=== PATIENT | female | born 1955 | race Caucasian/White ===

== ENCOUNTER 2017-01-14 07:36 | Inpatient (IN) | payer BC ==
--- NOTE | ~2017-01-14 | OP ---
Record Of Operation [facility] [address] [place]. [address] NAME: NAI MAYER : 57 STATUS : DIS IN PAT#: [id number] AGE: 62 ADM/REG DATE : 01/14/17 MR#: [id number] REPORT SERV DATE: 01/16/17 DICTATED BY: JOHNATHAN BERNARD II DATE: 01/16/17 REPORT STATUS : Draft TRANSCRIBED BY: AMARA DATE: 01/16/17 DATE OF PROCEDURE: 01/14/2017 MUSHROOM GROWTH MEDIA MIXER: Dr. Mariaelena Herron. PREOPERATIVE DIAGNOSIS: Recurrent symptomatic left carotid stenosis. POSTOPERATIVE DIAGNOSIS: Recurrent symptomatic left carotid stenosis. PROCEDURE: Left carotid angioplasty and stent placement with distal filter protection. ANESTHESIA: Local with MAC. IV FLUIDS: 500. ESTIMATED BLOOD LOSS: 10. CONTRAST: 24. BRIEF HISTORY: Ms. Mayer is a 62-year-old female who had a previous left carotid endarterectomy many years ago. She continues to smoke. She has had no surveillance. She presents with a recurrent episode of aphasia. Ultrasound demonstrates severe restenoses within the internal carotid artery. DESCRIPTION OF PROCEDURE: She was taken to the operating room and placed in supine position on table. Both groins were prepped and draped. I used ultrasound to identify the right common femoral artery, performed a puncture, placed a 5-[place] sheath. Systemic heparin was given. I then passed a catheter into the arch of aorta. Aortogram was performed. This demonstrated a patent thoracic aorta. All branch vessels were patent with no significant stenosis, although calcium is seen. I then passed a catheter into the common carotid artery on the left side. Angiogram was performed demonstrating a patent common internal and external carotid artery. On an oblique view, there was a greater than 80% stenosis with early ulceration within the internal carotid artery. The distal internal carotid was widely patent. We then placed a 6-[place]at[place] sheath within the common carotid and then passed a filter carefully through the stenosis and opened the filter in the distal internal carotid. Primary stent placement was then performed using an 8 mm x 40 mm balloon that was advanced into the internal carotid artery and deployed without difficulty. We post dilated this with a 5 mm balloon. Completion angiogram demonstrates an excellent result with no further significant stenosis noted. No dissection or extravasation. No evidence of embolization. We then removed all the wires and catheters and closed percutaneously. At the end of the procedure, the patient was stable. She tolerated it well. DICKSON/AMARA Record Of [place] [address] [place] [address] NAME: NAI MAYER : 57 STATUS : DIS IN PAT#: [id number] AGE: 62 ADM/REG DATE : 01/14/17 MR#: [id number] REPORT SERV DATE: 01/16/17 DICTATED BY: JOHNATHAN BERNARD II DATE: 01/16/17 REPORT STATUS : Draft TRANSCRIBED BY: AMARA DATE: 01/16/17 Johnathan Bernard II, M.D. / [id number] CC: Kelly Lozoya II, TERESA J
[~2017-01-14 07:36] MED LIST: ACET500CAP PO; AMOXICILLIN PO; ASAB PO; AVELOX400 PO; BEN25 PO; CALTRA600D PO; CARASPUDL PO; CLAVULANATE PO; DSS PO; FERROUS SULF325 M1 PO; FESO4 PO; FLUCON150 PO; FLUCONAZOLE PO; IMOD PO; IRON PO; LIPITOR20 PO; MULTIVITAMI1 PO; NASACORTAQ NAS; NORCO1 TA1 PO; NYS500UDL PO; P10 PO; PLAVIX PO; PREV15 PO; PREV30 PO; PRIN10 PO; PROBIOTIC PO; SLOW FE160 MG PO; SUCR PO; SYMBICORT 160/41 INH INH; T PO; TRILIPIX135 MG PO; VIT D PO; VITAMIN C PO; VITC500 PO; ZOCOR10 PO
[2017-01-14 08:12] LABS: BASOPHILS 0.3 %; BASOPHILS ABSOLUTE 0.02 10/3/uL (0.0-0.16); EOSINOPHILS 2.3 %; EOSINOPHILS ABSOLUTE 0.18 10/3/uL (0.0-0.53); HEMATOCRIT 41.8 % (36.0-48.0); HEMOGLOBIN 13.8 g/dL (12.0-16.0); IMMATURE GRANULOCYTES 0.3 %; IMMATURE GRANULOCYTES ABSOLUTE 0.02 10/3/uL (0.0-0.11); LYMPHOCYTES 41.4 %; MEAN CORPUSCULAR HEMOGLOB 28.8 pg (26.0-34.0); MEAN CORPUSCULAR VOLUME 87.3 fL (80-100); MEAN PLATELET VOLUME 8.6 fL (9.2-13.0); MONOCYTES 8.7 %; MONOCYTES ABSOLUTE 0.67 10/3/uL (0.21-1.20); NEUTROPHILS ABSOLUTE 3.64 10/3/uL (2.02-8.40); PLATELET COUNT 373 10/3/uL (150-400); RBC DISTRIBUTION WIDTH 17.7 % (12.0-16.0); RED CELL COUNT 4.79 10/6/uL (4.0-5.6); WHITE BLOOD CELLS 7.7 10/3/uL (4.5-10.5)
[2017-01-14 08:13] LABS: MANUAL DIFF NO %
[2017-01-14 08:17] LABS: ASCORBIC ACID (UR NOT ORDER) NEG (NEG); BILIRUBIN, URINE NEGATIVE (NEG); KETONE, URINE NEGATIVE (NEG); LEUKOCYTE ESTERASE(NOT OR NEG (NEG); WBC (NOT ORDERED) (RFLEX) < 1 (0-5)
[2017-01-14 08:26] LABS: BUN (BLOOD UREA NITROGEN) 7 MG/DL (6-23); CALCIUM, SERUM 9.3 MG/DL (8.5-10.4); CHLORIDE, SERUM 107 MMOL/L (96-112); CO2 (CARBON DIOXIDE) 28 MMOL/L (24-34); CREATININE 0.58 MG/DL (0.55-1.02); GFR AFRICAN AMERICAN 115 ML/MIN (>=60); GFR NON AFRICAN AMERICAN 99 ML/MIN (>=60); GLUCOSE, SERUM 108 MG/DL (60-99); POTASSIUM, SERUM 4.2 MMOL/L (3.5-5.3); SODIUM, SERUM 140 MMOL/L (135-148)
[2017-01-14 18:57] LABS: HEMATOCRIT 36.9 % (36.0-48.0)
[2017-01-15 03:18] LABS: BASOPHILS 0.2 %; BASOPHILS ABSOLUTE 0.02 10/3/uL (0.0-0.16); EOSINOPHILS 1.1 %; HEMATOCRIT 37.7 % (36.0-48.0); HEMOGLOBIN 12.3 g/dL (12.0-16.0); IMMATURE GRANULOCYTES 0.2 %; IMMATURE GRANULOCYTES ABSOLUTE 0.02 10/3/uL (0.0-0.11); LYMPHOCYTES 28.3 %; LYMPHOCYTES ABSOLUTE 2.51 10/3/uL (0.67-4.30); MEAN CORPUS HGB CONC 32.6 g/dL (32.0-36.0); MEAN CORPUSCULAR HEMOGLOB 28.5 pg (26.0-34.0); MEAN CORPUSCULAR VOLUME 87.5 fL (80-100); MEAN PLATELET VOLUME 8.8 fL (9.2-13.0); MONOCYTES 8.5 %; MONOCYTES ABSOLUTE 0.75 10/3/uL (0.21-1.20); NEUTROPHILS 61.7 %; NEUTROPHILS ABSOLUTE 5.46 10/3/uL (2.02-8.40); PLATELET COUNT 335 10/3/uL (150-400); RBC DISTRIBUTION WIDTH 17.5 % (12.0-16.0); RED CELL COUNT 4.31 10/6/uL (4.0-5.6); WHITE BLOOD CELLS 8.9 10/3/uL (4.5-10.5)
[2017-01-15 03:23] LABS: MANUAL DIFF NO %
[2017-01-15 03:30] LABS: BUN (BLOOD UREA NITROGEN) 7 MG/DL (6-23); CALCIUM, SERUM 8.6 MG/DL (8.5-10.4); CHLORIDE, SERUM 104 MMOL/L (96-112); CO2 (CARBON DIOXIDE) 31 MMOL/L (24-34); CREATININE 0.63 MG/DL (0.55-1.02); GFR AFRICAN AMERICAN 112 ML/MIN (>=60); GFR NON AFRICAN AMERICAN 97 ML/MIN (>=60); GLUCOSE, SERUM 102 MG/DL (60-99); POTASSIUM, SERUM 3.9 MMOL/L (3.5-5.3); SODIUM, SERUM 140 MMOL/L (135-148)
[2017-01-15 03:56] LABS: HEMATOCRIT 34.9 % (36.0-48.0); HEMOGLOBIN 11.6 g/dL (12.0-16.0)
[2017-01-15 05:33] LABS: POTASSIUM, SERUM 4.1 MMOL/L (3.5-5.3)
[2017-01-15 11:36] LABS: HEMATOCRIT 33.4 % (36.0-48.0); HEMOGLOBIN 10.9 g/dL (12.0-16.0)
== END 2017-01-15 14:30 | disposition home or self-care (01) | DRG 36 ==
LOC: SDC 07:36 → CVICU 11:00
PROVIDERS: Surgery
PROC: 037L3DZ Dilation of Left Internal Carotid Artery with Intraluminal Device, Percutaneous Approach (ICD-10-PCS; principal; 2017-01-14 08:45)
DX: I65.21 Occlusion and stenosis of right carotid artery (principal); R47.01 Aphasia; I10 Essential (primary) hypertension; J44.9 Chronic obstructive pulmonary disease, unspecified; E78.5 Hyperlipidemia, unspecified; E11.9 Type 2 diabetes mellitus without complications; F17.210 Nicotine dependence, cigarettes, uncomplicated
CPT/HCPCS: 36221; 36415; 37215; 71010; 80048; 81001; 82962; 83735; 84132; 85014; 85018; 85025; 86850; 86900; 86901; 86920; 87641; 93005; 94640; 97161-GP; A9270-GY; C1725; C1760; C1769; C1876; C1894; J2370; J2405; J3010; J3475; Q9967